=== PATIENT | female | born 1960 | race Asian ===

== ENCOUNTER 2016-12-13 20:51 | Emergency (ER) | payer OTHER, SELFPAY ==
[~2016-12-13] VITALS: Ht 154.9 cm; Wt 65.0 kg
[2016-12-13] MEDS ORDERED: LISI-167 PO (21:23)
[2016-12-13] MEDS ORDERED: ACETAMINOPHEN 325 MG TABLET ONE (21:52)
[2016-12-13 21:53] LABS: BLOOD UREA NITROGEN 19 mg/dL (7-18)
[2016-12-13 21:57] LABS: IS PT STATUS REG ER OR PRE ER? YES
[2016-12-13] MEDS ORDERED: ACETAMINOPHEN 325 MG TABLET PO ONE (22:00)
[2016-12-13] MEDS ORDERED: HYDROCHLOROTHIAZIDE 25 MG TABLET PO ONE (22:30)
[2016-12-13] MEDS ORDERED: LISINOPRIL 10 MG TABLET PO ONE (22:30)
[2016-12-13 23:29] VITALS: BP 115/81
== END 2016-12-13 23:31 | disposition home or self-care (01) ==
LOC: ED 21:32
DX: R51 Headache (principal); I10 Essential (primary) hypertension
CPT/HCPCS: 36415; 80048; 82040; 84484; 85025; 93005

== ENCOUNTER 2017-04-02 00:40 | Emergency (ER) | payer SELFPAY ==
[~2017-04-02] VITALS: Ht 162.6 cm; Wt 65.9 kg
[~2017-04-02 00:40] MED LIST: LISI-167 PO
[2017-04-02 00:41] VITALS: BP 198/126
[2017-04-02] MEDS ORDERED: IBUPROFEN 200 MG TABLET PO ONE (02:00)
[2017-04-02] MEDS ORDERED: HYDROcodone/APAP 5/325 TABLET PO ONE (02:00)
[2017-04-02] MEDS ORDERED: HYDROcodone/APAP 5/325 TABLET ONE (02:14)
[2017-04-02] MEDS ORDERED: IBUPROFEN 200 MG TABLET ONE (02:14)
== END 2017-04-02 02:32 | disposition home or self-care (01) ==
LOC: ED 02:12
DX: M76.61 Achilles tendinitis, right leg (principal); I10 Essential (primary) hypertension
CPT/HCPCS: 99284

== ENCOUNTER 2017-04-15 20:30 | Emergency (ER) | payer OTHER ==
[~2017-04-15] VITALS: Ht 157.5 cm; Wt 65.0 kg
[2017-04-15 22:08] VITALS: BP 178/112
== END 2017-04-15 22:11 | disposition home or self-care (01) ==
LOC: ED 21:29
DX: S86.011A Strain of right Achilles tendon, initial encounter (principal); I10 Essential (primary) hypertension; X58.XXXA Exposure to other specified factors, initial encounter; Y93.89 Activity, other specified; Y92.59 Other trade areas as the place of occurrence of the external cause; Y99.0 Civilian activity done for income or pay
CPT/HCPCS: 29515; 99283

== ENCOUNTER 2018-03-04 09:49 | Emergency (ER) | payer SELFPAY ==
[~2018-03-04] VITALS: Ht 160 cm; Wt 66.0 kg
[2018-03-04] MEDS ORDERED: DIPHENHYDRAMINE 50 MG/ML, 1ML ONE (10:47)
[2018-03-04] MEDS ORDERED: PROCHLORPERAZINE 5 MG/ML, 2ML ONE (10:47)
[2018-03-04 10:53] LABS: BASOPHILS # (AUTO) 0.04 x10^3/uL (0-0.1); BASOPHILS % (AUTO) 1 % (0-1); EOSINOPHILS # (AUTO) 0.33 x10^3/uL (0-0.4); EOSINOPHILS % (AUTO) 4 % (1-7); LYMPHOCYTES % (AUTO) 40 % (22-44); MD NO; MEAN CORPUSCULAR HEMOGLOBIN 31.5 pg (27.0-34.8); MEAN CORPUSCULAR VOLUME 92.7 fL (80-100); MEAN PLATELET VOLUME 7.3 fL (7.4-10.4); MONOCYTES # (AUTO) 0.59 x10^3/uL (0.2-0.8); MONOCYTES % (AUTO) 8 % (2-9); NEUTROPHILS # (AUTO) 3.47 x10^3/uL (1.8-6.8); NEUTROPHILS % (AUTO) 47 % (42-75); PLATELET COUNT 282 x10^3/uL (130-400); RED BLOOD COUNT 5.21 x10^6/uL (3.82-5.3); RED CELL DISTRIBUTION WIDTH 13.4 % (9.6-15.2)
[2018-03-04] MEDS ORDERED: PROCHLORPERAZINE 5 MG/ML, 2ML IVPush ONE (11:00)
[2018-03-04] MEDS ORDERED: DIPHENHYDRAMINE 50 MG/ML, 1ML IVPush ONE (11:00)
[2018-03-04] MEDS ORDERED: KETOROLAC 30 MG/1 ML IVPush ONE (11:00)
[2018-03-04] MEDS ORDERED: SODIUM CHLORIDE 0.9% 1,000ML IVBOLUS ONE (11:00)
[2018-03-04 11:06] LABS: CHLORIDE 107 mmol/L (98-107)
[2018-03-04 11:13] LABS: ALANINE AMINOTRANSFERASE 79 U/L (12-78); ALBUMIN 4.1 g/dL (3.4-5.0); ALKALINE PHOSPHATASE 84 U/L (45-117); ANION GAP 6 mmol/L (5-15); BILIRUBIN,TOTAL 0.7 mg/dL (0.2-1.0); CREATININE 1.04 mg/dL (0.55-1.02); TOTAL PROTEIN 9.4 g/dL (6.4-8.2)
[2018-03-04] MEDS ORDERED: SODIUM CHLORIDE FLUSH 10ML SYR IVF ONE (11:30)
[2018-03-04 12:08] VITALS: BP 144/94
== END 2018-03-04 13:03 | disposition home or self-care (01) ==
LOC: ED 12:50
DX: G43.C0 Periodic headache syndromes in child or adult, not intractable (principal); I10 Essential (primary) hypertension
CPT/HCPCS: 36415; 70450; 80053; 85025; 96374; 96375; 99285; J0780; J1200; J7030

== ENCOUNTER 2018-04-09 18:23 | Emergency (ER) | payer OTHER ==
[~2018-04-09] VITALS: Ht 154.9 cm; Wt 66.2 kg
[2018-04-09 18:25] VITALS: BP 180/98
== END 2018-04-09 19:01 | disposition home or self-care (01) ==
LOC: ED 18:40
DX: B00.1 Herpesviral vesicular dermatitis (principal); I10 Essential (primary) hypertension
CPT/HCPCS: 99283